=== PATIENT | male | born 1970 | race Two or more races ===

== ENCOUNTER 2020-11-21 09:30 | Inpatient (IN) | payer OTHER ==
[~2020-11-21] VITALS: Ht 175.3 cm; Wt 93.9 kg
[2020-12-01] MEDS ORDERED: PRILOSEC OTC20 MG PO (09:27)
[2020-12-01] MEDS ORDERED: PERCOCET 5-3251 EACH PO (09:27)
== END 2020-12-01 11:40 | disposition home or self-care (01) | DRG 330 ==
LOC: O/R 11-28 06:25 → SURH 11-28 09:30 → SURG 11-28 16:04
PROVIDERS: ADMIT Surgery; ATTEND Surgery
PROC: 0DTN0ZZ Resection of Sigmoid Colon, Open Approach (ICD-10-PCS; 2020-11-28)
PROC: 07TC0ZZ Resection of Pelvis Lymphatic, Open Approach (ICD-10-PCS; 2020-11-28)
PROC: 3E0F7SF Introduction of Other Gas into Respiratory Tract, Via Natural or Artificial Opening (ICD-10-PCS; 2020-11-28)
PROC: 0DTP0ZZ Resection of Rectum, Open Approach (ICD-10-PCS; principal; 2020-11-28 10:30)
DX: C19 Malignant neoplasm of rectosigmoid junction (principal); K57.32 Diverticulitis of large intestine without perforation or abscess without bleeding; R59.0 Localized enlarged lymph nodes; G47.33 Obstructive sleep apnea (adult) (pediatric); D50.0 Iron deficiency anemia secondary to blood loss (chronic); R10.32 Left lower quadrant pain

== ENCOUNTER 2020-11-27 06:20 | Day surgery (SDC) | payer OTHER | END 2020-11-27 10:20 | disposition home or self-care (01) | LOC: AMB-ENDOS 06:20 → CIR.AMB 09:30 → AMB-ENDOS 10:20 | PROVIDERS: ATTEND Surgery | DX: K62.1 Rectal polyp (principal) ==

== ENCOUNTER 2020-12-29 06:26 | Day surgery (SDC) | payer OTHER ==
[~2020-12-29 06:26] MED LIST: PERCOCET 5-3251 EACH PO; PRILOSEC OTC20 MG PO
[2020-12-29] MEDS ORDERED: PERCOCET 5-3251 EACH PO (07:51)
== END 2020-12-29 10:55 | disposition home or self-care (01) ==
LOC: CIR.AMB 06:26
PROVIDERS: ATTEND Surgery
DX: C19 Malignant neoplasm of rectosigmoid junction (principal); Z20.822 Contact with and (suspected) exposure to COVID-19
CPT/HCPCS: 36561; C1751